=== PATIENT | male | born 1940 | race Caucasian/White ===

== ENCOUNTER 2018-11-21 17:49 | Inpatient (IN) | payer OTHER ==
[~2018-11-21] VITALS: Ht 152.4 cm; Wt 84.8 kg
[2018-11-21 18:11] VITALS: BP 106/73
[2018-11-21] MEDS ORDERED: ATIVAN0.5 MG PO (18:37)
[2018-11-21] MEDS ORDERED: ROSUVASTATIN CA20 MG PO (18:38)
[2018-11-21] MEDS ORDERED: BISOPROLOL FUMAR5 MG PO (18:38)
[2018-11-21] MEDS ORDERED: BUSPIRONE HCL10 MG PO (18:39)
[2018-11-21] MEDS ORDERED: PAXIL10 MG PO (18:39)
[2018-11-21] MEDS ORDERED: REMERON15 MG PO (18:40)
[2018-11-21] MEDS ORDERED: ASPIR 8181 MG PO (18:42)
[2018-11-21] MEDS ORDERED: MELATIN3 MG PO (18:42)
[2018-11-21] MEDS ORDERED: B-121000 MC2 PO (18:42)
[2018-11-21 18:43] LABS: HEMATOCRIT 37.6 % (42.0-52.0); MCHC 34.5 g/dL (28.0-37.0); MCV 89.6 fL (80.0-100.0); PLATELET COUNT 236 thou/uL (150-400); RDW 12.8 % (10.5-14.5); WBC 8.1 thou/uL (4.0-11.0)
[2018-11-21] MEDS ORDERED: MIRALAX17 GM PO (18:43)
[2018-11-21 18:44] LABS: URINE BILIRUBIN NEGATIVE (Negative); URINE BLOOD TRACE (Negative); URINE CLARITY CLEAR; URINE COLOR YELLOW; URINE GLUCOSE-RANDOM* NEGATIVE (Negative); URINE KETONES NEGATIVE (Negative); URINE LEUKOCYTES-REFLEX TRACE (Negative); URINE NITRITE-REFLEX NEGATIVE (Negative); URINE PROTEIN (DIPSTICK) NEGATIVE (Negative); URINE SPECIFIC GRAVITY <= 1.005 (1.005-1.035); URINE UROBILINOGEN 0.2 E.U./dl (0.2-1.0)
[2018-11-21] MEDS ORDERED: DDAVP0.1 MG PO (18:46)
[2018-11-21] MEDS ORDERED: FLOMAX0.4 MG PO (18:46)
[2018-11-21 18:54] LABS: ANION GAP 7 mmol/L (7-16); BUN 13 mg/dL (7-18); CALCIUM 8.5 mg/dL (8.5-10.1); CHLORIDE 90 mmol/L (98-107); CO2 26 mmol/L (21-32); CREATININE 1.1 mg/dL (0.7-1.3); GLUCOSE 95 mg/dL (74-106); MAGNESIUM 1.8 mg/dL (1.8-2.4); POTASSIUM 4.5 mmol/L (3.5-5.1); SODIUM 123 mmol/L (136-145); TROPONIN-I <0.06 ng/mL (<0.06)
[2018-11-21 18:56] LABS: AMP/METHAMP Negative (Negative); BARBITURATES Negative (Negative); BENZODIAZEPINES Negative (Negative); COCAINE Negative (Negative); METHADONE Negative (Negative); OPIATES Negative (Negative); PCP Negative (Negative)
[2018-11-21 19:15] LABS: ABSOLUTE NEUTROPHILS 4.9 thou/uL (1.4-8.2)
[2018-11-21 20:16] VITALS: BP 141/58
[2018-11-21 20:23] VITALS: BP 136/52
[2018-11-21 20:58] VITALS: BP 147/65
--- NOTE | 2018-11-22 05:05 | NUR ---
admit pt admitted to room 452 from er being admitted with hyponatremia, delirium and anxiety has a hx of severe heri, and major depressive disorder. pt recently had a fall with loc. sodium level 123. am labs ordered, ivf's initiated pt voiding per urinal family went and bought food. pt resting in bed quietly most of shift, vss continue to monitor
[2018-11-22 06:37] LABS: CALCIUM 9.2 mg/dL (8.5-10.1); CREATININE 0.9 mg/dL (0.7-1.3); POTASSIUM 4.5 mmol/L (3.5-5.1)
[2018-11-22 08:32] VITALS: BP 122/62
--- NOTE | 2018-11-22 08:36 | EKG ---
[place] [address] 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 : 1940 Requested By: Kerwin Victoria Order Number: [id number] MD: Alex Alejandro Measurements Intervals [place] Rate: 74 P: 43 MN: 176 QRS: -8 QRSD: 97 T: 58 QT: 416 QTc: 462 Interpretive Statements Sinus rhythm Frequent premature ventricular complexes Inferior infarct, old No previous ECG available for comparison Electronically Signed On 11-22-2018 8:35:43 CDT by Alex Alejandro [email or web address] ��������������������������������������������� <ELECTRONICALLY SIGNED> ���������������������������������������� By: Alex Alejandro MD, [facility] ��������������������������������������������� 11/22/18 0835 1851 50 Alex Alejandro MD, FACC /EPI
--- NOTE | 2018-11-22 08:37 | NUR ---
Nutrition: Received consult for poor intake. Admitted with AMS, hyponatremia. Hx: severe GALI, major depressive disorder. Met with pt and prior to AM meal. Pt reports ~1 week ago he fell and was in another hospital for 3-4 days. While in hospital, he didn't eat much d/t laying in bed and not stimulating much of an appetite. Also states he could lose a little wt. Discouraged wt loss while hospitalized. Recommended pt focus on 2-3 items/meal and protein in particular as a priority item, if appetite to remain a little lower d/t such limited activity. Only skin tears to L elbow noted. On a B12 supplement, also Remeron (potential nutrition side effect of increased appetite). Aware he can make menu changes to help PO. No further needs, low nutrition risk.
--- NOTE | 2018-11-22 10:52 | NUR ---
PT A&OX4, VSS, DENIES PAIN, DENIES SOA/CHEST PAIN. PATIENT RESTING IN BED WITH AT BEDSIDE. AFFECT CALM, PATIENT NOT COMPULSIVE AT THIS TIME, COOPERATIVE AND SMILING. MEDICATION GIVEN ORDERED, WILL CONTINUE TO MONITOR.
--- NOTE | 2018-11-22 12:36 | NUR ---
PT ADMITTED RELATED TO HYPONATREMIA, AMS. CM REVIEWED CHART AND SPOKE WITH CARE TEAM. CM MET WITH PT AND SPOUSE AT BEDSIDE THIS DAY. PT IS A&O X4 BUT PT'S SPOUSE ASSISTED IN ANSWERING ASSESSMENT QUESTIONS. THEY INDICATED THAT THEY LIVE IN A HOUSE WITH 4 STEPS TO ENTER THROUGH THE GARAGE AND 17 STEPS INSIDE. THEY INDICATED THAT PT HAD BEEN TO [facility] 10/30, 11/13, AND 11/18. THEY INDICATED THAT PT WAS SENT HOME WITH A FWW AND HAD HOME HEALTH ORDERED BUT THEY HADN'T SEEN PT YET. THEY COULDN'T RECALL PROVIDER. THEY INDICATED THAT THEY ARE INTERESTED IN PT BEING ASSESSED FOR [facility]. PT HAS A PSYCHO THERAPIST, PSYCHIATRIST, AND PSYCHOLOGIST WHO HE SEES REGULARLY. CM TO FOLLOW INDICATED WITH DC PLANNING.
--- NOTE | 2018-11-22 13:23 | NUR ---
ASSUMED PT CARE AT APPROX. 12:30. PT A&OX4, IV INTACT IN R AC. PT NOW EATING LUNCH. NO CONCERNS AT THIS TIME, SPOUSE IS AT THE BEDSIDE. WILL CONT POC.
[2018-11-22 15:58] VITALS: BP 110/52
[2018-11-22 19:07] VITALS: BP 104/44
[2018-11-23 04:10] VITALS: BP 99/47
[2018-11-23 05:20] LABS: ALBUMIN 3.5 g/dL (3.4-5.0); CALCIUM 9.4 mg/dL (8.5-10.1); CREATININE 1.3 mg/dL (0.7-1.3); POTASSIUM 4.5 mmol/L (3.5-5.1)
--- NOTE | 2018-11-23 07:21 | NUR ---
progress pt alert and oriented but still confused thinks his father is in the room at times. not impulsive at all and easily redirected. denies pain voiding qs per urinal family at bedside slept most of night.
[2018-11-23 07:40] VITALS: BP 119/51
[2018-11-23 14:57] VITALS: BP 106/51
--- NOTE | 2018-11-23 15:16 | NUR ---
I was asked to assess Jason, to see if he would met criteria for SBHU. Jason, shared with me that he has had shame, since he was a child. He shared that his mother suffered from mental illness. He also feels shame due to "I lost face with my family." He has mind racing, depression, OCD, insomnia and confusion. He stated that his insomnia has gotten worse since his custodial. Jason rated his depression at 6-7/10; he rated his anxiety as "moderate" As reported by his , Jason did have visual hallucinations last night. He presented to the ER on 11/21/18 for agitation, and confusion. Please see notes. The physician did not medically clear him for admission to [facility] due to electrolyte imbalance. Please see notes for details. His had a tour of [facility]. She shared with me that Jason' mother committed suicide and that is where his shame is based. Jason meets criteria for SBHU. He and his are agreeable for him to be admitted to [facility]. Dr. Clark was informed.
--- NOTE | 2018-11-23 18:45 | NUR ---
PT STABLE THROUHGOUT SHIFT. PT TRANSFERRED TO 5S THIS EVENING. REPORT CALLED.
== END 2018-11-23 18:47 | DRG 640 ==
LOC: ER 17:49 → EROBS 19:27 → 4W 19:27
PROVIDERS: Emergency Medicine; Nurse Practitioner Acute Care; ADMIT Hospitalist
DX: E87.1 Hypo-osmolality and hyponatremia (principal); G93.41 Metabolic encephalopathy; F05 Delirium due to known physiological condition; F03.90 Unspecified dementia, unspecified severity, without behavioral disturbance, psychotic disturbance, mood disturbance, and anxiety; F41.9 Anxiety disorder, unspecified; F41.1 Generalized anxiety disorder; F32.9 Major depressive disorder, single episode, unspecified; F42.9 Obsessive-compulsive disorder, unspecified; R29.6 Repeated falls; Z79.82 Long term (current) use of aspirin; Z79.899 Other long term (current) drug therapy; Z88.0 Allergy status to penicillin; Z88.8 Allergy status to other drugs, medicaments and biological substances; Z91.041 Radiographic dye allergy status; Z90.49 Acquired absence of other specified parts of digestive tract; Z87.891 Personal history of nicotine dependence
CPT/HCPCS: 10040; 10045

== ENCOUNTER 2018-11-23 16:09 | Inpatient (IN) | payer OTHER ==
[~2018-11-23] VITALS: Ht 172.7 cm; Wt 83.0 kg
--- NOTE | ~2018-11-23 | D ---
[facility] [place] [address] DISCHARGE SUMMARY Name: SARAH ORO Room #: 527B-B DIS IN M.R.#: [id number] Admission: 11/23/18 ������������������ Attend Phys: Ed Clark DO Discharge: 11/29/18 ������������������ Date of : 40 Report #: [id number] THIS REPORT FOR: //name// CC: Ed Moore DATE OF SERVICE: 11/29/2018 PSYCHIATRIC DISCHARGE SUMMARY ATTENDING PHYSICIAN: Ed Clark DO. STEWARD/STEWARDESS ECONOMY CLASS AT THE TIME OF DISCHARGE: Mauri Buckley MD. DISCHARGE DIAGNOSES: Persistent depressive disorder, mild neurocognitive disorder with anxiety. The patient's medical comorbidities include hyponatremia, resolved; history of syncope, felt to be vasovagal due to diarrhea, possible diabetes insipidus, will need to be followed medically. DISCHARGE PLAN: Discharging to his own private residence where he lives with his , Chan. The patient will begin general medical followup through his PCP who is, Eliecer Moore. Psychiatric followup was not specifically arranged as the patient was expected to be discharged to SNF that and did not happen. However, it would be advisable for him to see a psychiatrist periodically. This was related to him as well. Also, the patient will need a followup in 12 months for repeat neuropsychological battery with Dr. Tyler Ellison, address and contact information for associated neuropsychologist was provided. REASON FOR ADMISSION: As follows: Worsening cognitive impairment, concern for visual hallucinations, and concern for impulsivity. HOSPITAL COURSE: The patient was admitted medically for the hyponatremia. After a couple of days, was discharged from the medical stay downstairs up to the [facility]. On the [facility], he had ____ SLUMS of ____ score was 17-19/30. Recommended neuropsychological testing that was done by Dr. Ellison. His findings were mild cognitive disorder and dysthymia picture with anxiety present as well. During the stay, it was discussed extensively with the patient is at increased risk of progressing to major neurocognitive disorder. Complicating the picture, the patient currently is quite deconditioned, has some difficulty with stairs such, when he is not on an uneven surface. We did have some difficulty with SNF placement despite PT and OT notes supporting skilled therapy. I do not know a great reason for this. However, if the patient can secure a week or two of rehabilitation time after discharge, it would be advantageous. The patient is really not keeping structured social enough. The patient's was counseled on that. [address] [address] DISCHARGE SUMMARY Name: SARAH ORO Room #: 527B-B DIS IN M.R.#: [id number] Admission: 11/23/18 ������������������ Attend Phys: Ed Clark DO Discharge: 11/29/18 ������������������ Date of : 40 Report #: [id number] DISCHARGE MEDICATIONS: Donepezil 5 mg p.o. at bedtime, I believe this had been started previously, tamsulosin 0.4 mg p.o. daily, atorvastatin 40 mg p.o. daily, bisoprolol 2.5 mg p.o. daily, mirtazapine 30 mg p.o. daily, lorazepam 0.5 mg p.o. at bedtime, 0.5 mg p.o. b.i.d. p.r.n. for anxiety, at bedtime for sleep, buspirone 10 mg p.o. b.i.d. for anxiety, Memantine 10 mg p.o. b.i.d., senna 2 tabs p.o. b.i.d. The patient did have some significant constipation, which was relieved with mag citrate and switching to senna from Colace or MiraLax. He also should continue B12 replacement and aspirin 81 mg p.o. daily. LABORATORY DATA: This admission on 11/29/2018, more recently, H and H 12.4 and 37.2, white count 6.8, platelets 221. Also, on 11/29/2018, electrolytes: Sodium 139, potassium 4.3, chloride 103, bicarbonate 29, anion gap 7, BUN 24, creatinine 1.4, estimated GFR 49, glucose 96, calcium 9.7, magnesium 2.6, which is ever so slightly high as normal range is 1.8-2.4. VITAL SIGNS: On the day of discharge, temperature 36.8, pulse 52, respirations 15, BP ____, O2 sat 95%. MUSCULOSKELETAL: Normal gait and station, wears hearing aids. MENTAL STATUS EXAMINATION: This is a well-developed, fairly nourished male bald and wearing hearing aids. Attention intact. Concentration intact. Speech is in normal rate. Thought process linear and goal oriented. Thought content focused on discharge. Mood and affect congruent, euthymic, fair range. Denied SI or HI. Denied hopelessness, helplessness. Memory not formally tested. Insight fair. Judgment fair to limited. Fund of knowledge at least average. PROGNOSIS: For this patient is fair to guarded given the increased likelihood of neurodegenerative disorder in 12 months as well as difficulties he has had over the last year. Again, general medical, psychiatric followup will be essential. ��������������������������������������������� ���������������������������������������� By: ��������������������������������������������� 2259 0052 Ed Clark, /nt
[~2018-11-23 16:09] MED LIST: ASPIR 8181 MG PO; ATIVAN0.5 MG PO; B-121000 MC2 PO; BISOPROLOL FUMAR5 MG PO; BUSPIRONE HCL10 MG PO; DDAVP0.1 MG PO; FLOMAX0.4 MG PO; MELATIN3 MG PO; MIRALAX17 GM PO; PAXIL10 MG PO; REMERON15 MG PO; ROSUVASTATIN CA20 MG PO
[2018-11-23 20:27] VITALS: BP 104/50
--- NOTE | 2018-11-23 22:45 | NUR ---
ADMISSION NOTE: THE PT ARRIVED ON THE FLOOR FROM VIA W/C. THE PT HAS HAD PYSCH ISSUES FOR 2 YEARS NOW. ONSET OF DEMENTIA. HAS A HISTORY OF OCD, ANXIETY, DEPRESSION, PSYCHOSIS. THE PT GOES BY THE NAME "ELENA." HE STATED THAT HE HAS HAD SHAME SINCE HE WAS A CHILD, HIS MOTHER SUFFERED FROM MENTAL ILLNESS. HE DENIES ANXIETY, DEPRESSION, STATED THAT HIS INSOMNIA HAS GOTTEN WORSE SINCE HE RETIRED. HE HAS BEEN TO THE HOSPITAL IN [place] [address] THIS LAST MONTH FOR BEHAVIORAL CHANGES. IT WAS REPORTED TO THIS NURSE, REPORTS SEVERAL DENTAL INFECTION LAST MONTH. HE WAS FOUND TO HAVE A LOW NA WHEN HE FIRST CAME HERE TO [facility]. HE LIVES WITH HIS , HISTORY OF TOBACCO USE, RARE ETOH ABUSE. DENIES DRUG USE. HE WEARS GLASSES FOR READING AND HAS BILATERAL EARING AIDES. STARTED ON 15 MINUTE CHECKS WHEN HE FIRST ARRIVED.
[2018-11-24 08:32] VITALS: BP 119/65
--- NOTE | 2018-11-24 17:39 | NUR ---
RESUMED CARE OF PATIENT AT 0700. DENIES ANY S/I OR H/I. DEPRESSION AND ANXIETY LOW. 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 MAKES NEEDS KNOWN. FAMILY VISITED AND APPEARED TO GO WELL. GOOD APPETITE. AMBULATORY - MEDICATION COMPLIANT.
[2018-11-24 19:41] VITALS: BP 116/57
--- NOTE | 2018-11-24 20:24 | NUR ---
RECEIVED REPORT FROM OFFGOING DAY NURSE. ASSUMED CARE @ 19:15. IN DAY ROOM READING A FICTION NOVEL. COOPERATED WITH ASSESSMENT, HRRR, LUNGS CTA, ABD N X 4 Q. HAD A BM TODAY. REPORTS HAS PAIN IN KNEE AND FEET WHICH IS CHRONIC. A&OX4. WILL CONTINUE TO MONITOR Q 12 FOR PATIENT SAFETY.
--- NOTE | 2018-11-24 23:46 | NUR ---
TOOK HS MEDS WHOLE WITH WATER, SHARED FAMILY HISTORY OF HIS NAME. PT DRESSED HIMSELF IN HOSPITAL GOWN AND PANTS, REQUESTED EXTRA BLANKET AND PILLOW, WHICH WERE PROVIDED. RETIRED TO BED, SLEEPING OF THIS WRITING.
[2018-11-25 05:37] VITALS: BP 116/57
[2018-11-25 05:40] LABS: CALCIUM 9.1 mg/dL (8.5-10.1); CREATININE 1.5 mg/dL (0.7-1.3); POTASSIUM 4.2 mmol/L (3.5-5.1)
--- NOTE | 2018-11-25 06:21 | NUR ---
SLEPT 7.8 HOURS OVERNIGHT.
[2018-11-25 09:11] VITALS: BP 143/52
--- NOTE | 2018-11-25 12:41 | NUR ---
In bathroom brushing teeth. Alert and cooperative with AM assessment. Asking appropriate questions. States he has chronic pain "3-4" in L upper abdomen. Also has some pain in left mouth. Slight erythema on left upper gum where tooth is absent. Tylenol given for pain. He states both are better but remains about a 3. States he feels alot better than just prior to admission. States he was seeing spider webs and being noncooperative with his family at that time. Denies SI, HI. Interested in participating in groups. VSS, no s/o distress. here visiting. concerned that he has not had a BM in 3 days. Would like to have physican prescribe Miralax.
--- NOTE | 2018-11-25 14:09 | NUR ---
LILI spoke with pts' spouse Mily [phone] and she agreed to come in for a family meeting on Tuesday at 2pm- per request of LILI supervisor shrimp [place]. This was reported to his treatment team via email
[2018-11-25 19:53] VITALS: BP 132/55
--- NOTE | 2018-11-25 22:02 | NUR ---
PT SITTING IN DAY ROOM TALKING WITH FEMALE PEERS. PLEASANT [facility] EYE CONTACT, SAD AFFECT. COMPLIANT WITH HS MEDS AND SNACK. AMBULATES WITH WALKER. PT STATED HE WAS TIRED AND WANTED TO GO TO BED AND WAS ASSISTED. COMPLIANT WITH ADL CARE.
[2018-11-26 07:48] VITALS: BP 102/50
--- NOTE | 2018-11-26 10:23 | H ---
[facility] [place] [address] HISTORY AND PHYSICAL Name: SARAH ORO Room #: 527B-B ADM IN M.R.#: [id number] Admission: 11/23/18 ������������������ Attend Phys: Ed Clark DO Discharge: ������������������ Date of : 40 Report #: [id number] THIS REPORT FOR: //name// CC: Ed Clark Justin Moore DATE OF SERVICE: 11/24/2018 ATTENDING PHYSICIAN: Ed Clark DO. ORNAMENTAL PLASTERER HELPER: Mauri Buckley MD REASON FOR ADMISSION: Worsening cognitive impairment, primarily evening p.m., visual hallucinations. Also, concern for impulsivity. SOURCES OF INFORMATION: Interview with the patient, discussion with his , with and without the patient present, notes from Dr. Buckley and medical team. HISTORY OF PRESENT ILLNESS: This is a 78-year-old male, father of at least 2 children, admitted after being discharged from the Hospitalist Service at [place], [place]. The patient was initially brought to the hospital on 11/21/2018 as a medical clearance for psychiatric admission; however, was found to be not medically stable with sodium of 123. In the ER, he described himself as being foggy, increased anxiety, confusion for the last month. He has had obsessive, repetitive behaviors which started back in August after he had a dental procedure and was given antibiotics, and got very dehydrated and was not sleeping. He keeps repetitive behaviors like pressing buttons or tapping the remote on and off, disconnecting and reconnecting the radio. He also has had some irrational fears. He lives at home with his . 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 His has an MPA and she is a retired ileana and continued medical education at [employer]. Apparently the day before the ER presentation, he was discharged from the [facility] for vasovagal syncope. He had been constipated and taking laxatives which were causing multiple loose stools and he passed out in the bathroom. This was witnessed by the who stated there was not a head injury. The denies problems in the past with hyponatremia, slurred speech. Stroke symptoms were denied. There are no drug problems including alcohol. Was not diagnosed with dementia despite having neurology evaluation a week before. Head CT done here at [facility] was negative. ALLERGIES: AMITRIPTYLINE, IODINE, PENICILLINS. later reported to nurse that Geodon causes delusions. precious reported that Buspirone, which was not rodered caused patients heart rate to drop below [facility] [address] [place] [address] HISTORY AND PHYSICAL Name: SARAH ORO Room #: 527B-B ADM IN M.R.#: [id number] Admission: 11/23/18 ������������������ Attend Phys: Ed Clark DO Discharge: ������������������ Date of : 40 Report #: [id number] 60 beats per minute. Also, reported that Abilify and Seroquel were not effective HOME MEDICATIONS: Reported to be lorazepam 0.5 mg p.r.n. daily, bisoprolol fumarate 2.5 mg p.o. daily, rosuvastatin 20 mg p.o. daily, buspirone 10 mg p.o. b.i.d., paroxetine 10 mg p.o. daily, mirtazapine 30 mg p.o. at bedtime, cyanocobalamin 1000 mcg p.o. daily, aspirin 81 mg p.o. daily, melatonin 3 mg p.o. at bedtime, polyethylene glycol 17 g p.o. at bedtime p.r.n. constipation, tamsulosin 0.4 mg p.o. daily for benign prostatic hypertrophy, desmopressin acetate 0.2 mg p.o. at bedtime for BPH as well. Now, his medications at the time of discharge from the medicine service are different, I will review those. PAST MEDICAL HISTORY: Appendectomy in childhood, herniorrhaphy, cholecystectomy. Medically, he has had a diagnosis of major depression, generalized anxiety in the past. He has had PVCs in the past, bradycardia, arterial calcification. SIGNIFICANT FAMILY HISTORY: Anxiety and depression in both of his adult sons, both currently are doing well. His mother had significant mental illness. She around 1989, but had required ECT. History of a suicide attempt. He had to live with relatives for several years. His father when he was 28, sounds like cardiovascular disease. He has siblings. SOCIAL HISTORY: Apparently, he formally smoked tobacco smoke, quit 1981. REVIEW OF SYSTEMS: From his ER stay included a negative 14-point review of systems. EKG noted Q-waves in III and aVF, PVCs versus ventricular bigeminy. LABORATORY DATA: On admission of 11/21 showed a sodium 123. Interestingly, otherwise his BMP was grossly normal. Troponin less than 0.06. CBC: White count 8.1, H and H 13.0 and 37.6, platelet count 236. Toxicology was negative. Urinalysis was negative. Other imaging included chest x-ray on 11/21/2018, showed mild increased bibasilar atelectasis, nothing for failure or acute pneumonitis read by Dr. Queen. Updated electrolytes from 11/23/2018 showed sodium 137, potassium 4.5, chloride 103, bicarbonate 25, BUN 19, creatinine 1.3, estimated GFR 53, glucose 110. Serum osmolality 287, calcium 9.4, phosphorus 4.0, magnesium 1.8. Ammonia 11. Albumin 3.5. TSH 2.560. PHYSICAL EXAMINATION: He had a slowed gait, normal station. The [place] Cognitive Assessment Initial version 3 was performed. The patient scored 17/30. Deficits were noted for clock drawing, delayed recall, reverse digit span and several others. [facility] [address] [place] [address] HISTORY AND PHYSICAL Name: SARAH ORO Room #: 527B-B ADM IN .R.#: [id number] Admission: 11/23/18 ������������������ Attend Phys: Ed Clark DO Discharge: ������������������ Date of : 40 Report #: [id number] I did advise the patient's family that this is significant as the patient has a bachelor's degree and should be performing better. I advised him at this point that neuropsychological testing was warranted given the repeated general medical workups have been unyielding and problems seem to be persisting and neurodegenerative process was certainly in the differential. VITAL SIGNS: Today, temperature 36.8, pulse 84, respirations 20, BP 119/65. MENTAL STATUS EXAMINATION: This is a well-developed, fairly nourished male, appearing stated age. Attention limited. Concentration fair. Speech is normal rate, volume and tone. Thought process is linear and goal directed. mood/affect congruent, euthymic diminished rangeThought content focused on ameliorating his difficulties. Denied SI or HI. Denied hopelessness, helplessness. Denied homicidal intent or plan. Memory impaired as described already for delayed. Did have some difficulties with immediate recall. He does wear hearing aids. Remote is intact. Insight fair. Judgment fair. Fund of knowledge above average. FORMULATION: A 78-year-old male presenting with progressive cognitive impairment, impulsivity, visual hallucinations. It has been difficult to tease out so far as this is delirium versus dementia. DIAGNOSES: At this time, cognitive impairment, rule out major neurocognitive disorder, major depressive disorder, not currently meeting criteria, generalized anxiety disorder, again not currently meeting criteria. Medical comorbidities include BPH, hyperlipidemia, and hypertension. PLAN: I discontinued paroxetine, lorazepam, paroxetine in particular due to the SIADH anticholinergic and cytochrome P450 inducing potential. Continue cyanocobalamin 1000 mcg p.o. daily, Zebeta 2.5 mg p.o. daily for hypertension, atorvastatin 40 mg p.o. daily for lipids. Continue aspirin for cardioprotection 81 mg. Continue tamsulosin 0.4 mg p.o. daily. Continue Remeron 30 mg p.o. at bedtime, continue melatonin 3 mg p.o. at bedtime, buspirone currently taking 10 mg p.o. b.i.d., and continue that for now, although its benefit will have to be weighed. Regarding new interventions, consulting Dr. Ellison for neuropsychological battery to give us some more measures and symptom validity measures regarding the cognitive complaints and deficits delineated on the [place] Cognitive Assessment. I will ask occupational therapy to weigh in with open evaluation of living skills. ESTIMATED LENGTH OF STAY: 7-10 days. Time spent on interview, review of records, and coordination of care for this patient is in the 60-minute range at least. STRENGTHS: He is insured, has supportive family. [facility] [address] [place] [address] HISTORY AND PHYSICAL Name: SARAH ORO Room #: 527B-B ADM IN M.R.#: [id number] Admission: 11/23/18 ������������������ Attend Phys: Ed Clark DO Discharge: ������������������ Date of : 40 Report #: [id number] WEAKNESSES: Advancing age. ��������������������������������������������� <ELECTRONICALLY SIGNED> ���������������������������������������� By: Ed Clark DO ��������������������������������������������� 11/26/18 1023 1341 1427 Ed Clark DO /nt
--- NOTE | 2018-11-26 11:08 | NUR ---
Sitting at side of bed. States his mouth is dry and that he feels "mixed up". Alert and oriented X4. Cooperative with care. Independent with AM care. Dressed self after clothes placed on walker. Able to ambulate to dining room with walker without difficulty. Compliant with medications. Attended AM group. Visiting with family at this time.
[2018-11-26 19:51] VITALS: BP 117/44
--- NOTE | 2018-11-26 22:01 | NUR ---
ASSUMED CARE OF THE PT AT 191 PM. THE PT WAS SITTING IN THE DAYROOM WHEN THIS FLOOR LAYER APPRENTICE CAME ON DUTY. ALERT ET ORIENTED X 3. MAKES NEEDS KNOWN. IS VERY [place], BUT HAS HEARING AIDS, WHICH HE TOOK OUT FOR THE NIGHT. HEART RATE REGULAR, LUNGS CLEAR BILATERALLY, RESP., EVEN, AND UNLABORED. +BS HEARD IN ALL 4 QUADRANTS. ABD SOFT ET NONTENDOR. RATES HIS ANXIETY A 4/10 AND HIS DEPRESSION A 4/10. DENIES SI/HI/A/V HALLUNICATIONS. WALKS WITH A STEADY GAIT. TOOK HIS HS MEDICATIONS WITHOUT ANY DIFFICULTY. REMAINS ON 12 MINUTE CHECKS FOR HIS SAFETY.
--- NOTE | 2018-11-27 05:46 | NUR ---
ASSISTED THE PT TO THE BATHROOM X 1 LAST NIGHT. WALKS WITH A STEADY GAIT. CONTINUES TO DENY PAIN. REMAINS ON 12 MINUTE CHECKS FOR HIS SAFETY.
[2018-11-27 07:41] VITALS: BP 106/53
--- NOTE | 2018-11-27 07:45 | NUR ---
PT STATED HE WAS WORRIED THAT HE HAS TAKEN TWO STEPS BACK INSTEAD OF FORWARD. PT STATED DUE TO HIS TREMORS. STATED TO PT THAT THIS NURSE WILL TALK TO DR. PT LUNGS CLEAR. PT DENIES ANY PAIN AT THIS TIME. PT COOROPERATIVE WITH STAFF. PT UP WITH PERSONAL WALKER.
--- NOTE | 2018-11-27 14:46 | NUR ---
PT IN FAMILY MEETING AT THIS TIME.
--- NOTE | 2018-11-27 16:49 | NUR ---
ADM MAG CITRATE 296ML PO FOR CONSTIPATION.
--- NOTE | 2018-11-27 18:05 | NUR ---
PT TRIED TO HAVE A BM HAD A SMALL AMOUNT.
[2018-11-27 19:28] VITALS: BP 136/62
[2018-11-27 22:56] VITALS: BP 136/62
--- NOTE | 2018-11-28 03:41 | NUR ---
PT OUT IN DAY AREA AT BEGINNING OF EVENING. INTERACTING APPROPRIATELY WITH [employer]ED PEERS. SOMEWHAT CONFUSED,AND PREOCCUPIED WITH BOWEL FUNCTION. AFTER HS SNACK TROOK HS MEDS ORDERED AND WENT TO BED. UP A COUPLE OF TIMES TO BATHROOM DURING THE NIGHT WITH MODEST RESULTS OF BM. OTHERWISE SLEPT WELL THROUGH THE NIGHT.
[2018-11-28 05:44] VITALS: BP 136/62
[2018-11-28 07:50] VITALS: BP 127/66; BP 154/83
--- NOTE | 2018-11-28 09:13 | NUR ---
0715: Report rec from [facility] shift, care assumed. [id number]: Ambulatory independently in room, [place] and to DR, gait steady. Feeds self, appetite good, oriented to name, place and time, mood is cheerful, cooperative with staff. Takes meds whole w/o difficulty, pt educated regarding stool softner/laxatives. Attends therapy group, 100% participation noted, pt enjoys stories of baseball history.
--- NOTE | 2018-11-28 16:53 | NUR ---
LILI spoke with pt concerning pt going to SNf. His mention that she would like a referral sent [facility]. SW sent the documents.
--- NOTE | 2018-11-28 18:02 | NUR ---
cm spoke with bedside nurse and left message with [employer] supervisor rt [facility] stated lcd 10th with dc on . "that is what dr is say also"/nurse esther.
[2018-11-28 19:41] VITALS: BP 125/49
--- NOTE | 2018-11-28 21:45 | NUR ---
ASSUMED CARE @ 19:15. SITTING IN THE DAY ROOM READING A FICTION NOVEL. A&O X 4, REPORTS IS MORE CLEAR THINKING AND FEELS BETTER. DENIES SI AND HI. TOOK HS MEDS WHOLE WITH WATER. RETIRED TO BED @ 21:30. WILL CONITNUE TO MONITOR Q 12 MINUTES FOR PATIENT SAFETY.
--- NOTE | 2018-11-29 03:44 | NUR ---
HAS AWAKENED SEVERAL TIMES, COME TO THE DAY ROOM, SPOKEN TO PEERS AND THEN GONE BACK TO ROOM AND RETURNED TO BED. DENIES NEED OR PAIN. WILL CONTINUE TO MONITOR Q 12 MINUTES FOR PATIENT SAFETY.
[2018-11-29 05:07] VITALS: BP 125/49
[2018-11-29 06:30] LABS: HEMATOCRIT 37.2 % (42.0-52.0); HEMOGLOBIN 12.4 gm/dL (14.0-18.0); MCH 31.3 pg (26.0-34.0); MCHC 33.5 g/dL (28.0-37.0); MCV 93.6 fL (80.0-100.0); RBC 3.97 mil/uL (4.50-6.00); RDW 13.3 % (10.5-14.5); WBC 6.8 thou/uL (4.0-11.0)
[2018-11-29 06:55] LABS: CALCIUM 9.7 mg/dL (8.5-10.1); CREATININE 1.4 mg/dL (0.7-1.3); MAGNESIUM 2.6 mg/dL (1.8-2.4); POTASSIUM 4.3 mmol/L (3.5-5.1)
[2018-11-29 09:03] VITALS: BP 127/50
--- NOTE | 2018-11-29 10:52 | NUR ---
0700: Report rec from noc shift, care assumed. [id number]: Ambulatory independently in room and to DR, gait steady. Pt is oriented to name and place, cooperative with staff, feeds self, appetite good, takes meds whole w/o difficulty. Shower completed, set up assist given. Visitor here, pt pleasant with staff and visitor.
--- NOTE | 2018-11-29 11:09 | NUR ---
Jason' informed me that his favorite cousin and the will be on Tuesday. I called [employer] Brandin jacobs for spritual support, for when the family broke the news to Jason. Jason, appeared to take the news well, he did tear up. His family and I explained that it is advised that he not attend the . Jason verbalized understanding.
--- NOTE | 2018-11-29 12:07 | NUR ---
SW provided to referrals to pt for HH. SW provide contact information to [facility], and [facility]. SW will follow-up with pt .
[2018-11-29] MEDS ORDERED: FLOMAX0.4 MG PO (13:26)
[2018-11-29] MEDS ORDERED: ARICEPT 5 MG TAB5 MG PO (13:27)
[2018-11-29] MEDS ORDERED: LIPITOR40 MG PO (13:27)
[2018-11-29] MEDS ORDERED: REMERON 30 MG T30 M1 PO (13:28)
[2018-11-29] MEDS ORDERED: BISOPROLOL FUMAR5 MG PO (13:28)
[2018-11-29] MEDS ORDERED: ATIVAN0.5 MG PO (13:29)
[2018-11-29] MEDS ORDERED: LORAZEPAM 0.50.5 MG PO (13:29)
[2018-11-29] MEDS ORDERED: BUSPIRONE HCL10 MG PO (13:30)
[2018-11-29] MEDS ORDERED: NAMENDA 5 MG TAB5 M1 PO (13:32)
[2018-11-29] MEDS ORDERED: SENNA-TIME S T1 EACH PO (13:32)
[2018-11-29 15:58] VITALS: BP 127/50
--- NOTE | 2018-11-29 17:04 | NUR ---
SW sent a referral to [facility] per family request. SW will follow-up with [facility] to see if pt accepted.
== END 2018-11-29 17:00 | disposition home health service (06) | DRG 57 ==
LOC: SBH 16:09
PROVIDERS: Internal Medicine; ADMIT Psychiatry & Neurology Psychiatry
DX: G31.84 Mild cognitive impairment of uncertain or unknown etiology (principal); E87.1 Hypo-osmolality and hyponatremia; F34.1 Dysthymic disorder; F29 Unspecified psychosis not due to a substance or known physiological condition; F41.1 Generalized anxiety disorder; F42.9 Obsessive-compulsive disorder, unspecified; K59.00 Constipation, unspecified; Z88.0 Allergy status to penicillin; Z88.8 Allergy status to other drugs, medicaments and biological substances; Z91.041 Radiographic dye allergy status; Z90.49 Acquired absence of other specified parts of digestive tract; Z81.8 Family history of other mental and behavioral disorders; Z79.82 Long term (current) use of aspirin; Z79.899 Other long term (current) drug therapy; F32.9 Major depressive disorder, single episode, unspecified
CPT/HCPCS: 10880